=== PATIENT | female | born 1990 | race Caucasian/White ===

== ENCOUNTER 2018-06-20 23:35 | Emergency (ER) | payer OTHER ==
[2018-06-20 23:48] VITALS: RESP 18; TEMP 97; O2SAT 98
[2018-06-21] MEDS ORDERED: KETOROLAC TROMETHAMINE 30 MG/ML SOL IM ONE (00:07)
[2018-06-21] MEDS ORDERED: KETOROLAC TROMETHAMINE 30 MG/ML SOL ONE (00:09)
[2018-06-21 00:36] LABS: APPEARANCE,URINE Clear; BILIRUBIN,URINE NEGATIVE (NEGATIVE); COLOR,URINE Yellow; GLUCOSE, URINE (UA) NEGATIVE (NEGATIVE); KETONES,URINE TRACE (NEGATIVE); LEUKOCYTE ESTERASE ,URINE NEGATIVE (NEGATIVE); NITRATE,URINE NEGATIVE (NEGATIVE); OCCULT BLOOD,URINE 3+ (NEG-TRACE); PH,URINE 5.5; UROBILINOGEN,URINE 0.2 (0.2-1.0 EU)
[2018-06-21 00:46] LABS: BACTERIA 1+ (< 1+); CRYSTALS NEGATIVE (0-3 AVE/HPF); WBC,URINE 0-2 (0-5AV/HPF)
[2018-06-21 00:54] VITALS: BP 131/84; PULSE 82
== END 2018-06-21 01:10 | disposition home or self-care (01) | DRG 392 ==
LOC: ED 23:35
DX: K59.01 Slow transit constipation (principal)
CPT/HCPCS: 74018; 74176; 81001; 96372; 99283; J1885

== ENCOUNTER 2018-06-29 21:23 | Emergency (ER) | payer OTHER ==
[2018-06-29 21:33] VITALS: RESP 20
[2018-06-29] MEDS ORDERED: SODIUM CHLORIDE 0.9% 1000ML 1,000 ML IV ONE (21:44)
[2018-06-29] MEDS ORDERED: KETOROLAC TROMETHAMINE 30 MG/ML SOL IV ONE (21:45)
[2018-06-29] MEDS ORDERED: ONDANSETRON HCL 4 MG/2 ML SOL IV ONE (21:46)
[2018-06-29] MEDS ORDERED: ONDANSETRON HCL 4 MG/2 ML SOL ONE (21:53)
[2018-06-29] MEDS ORDERED: KETOROLAC TROMETHAMINE 30 MG/ML SOL ONE (21:53)
[2018-06-29 21:56] LABS: HEMATOCRIT 40 % (35-47); HEMOGLOBIN 13.5 gm/dl (12.0-15.5); MEAN CORPUSCULAR HEMOGLOBIN 30.9 pg (27.0-32.0); MEAN CORPUSCULAR HGB CONC 33.9 gm/dl (32.0-36.0); MEAN CORPUSCULAR VOLUME 91 fL (81-99)
[2018-06-29 22:04] VITALS: BP 134/84; PULSE 66; TEMP 98.2; O2SAT 99
[2018-06-29 22:08] LABS: ALBUMIN 3.6 gm/dl (3.4-5.0); BILIRUBIN,TOTAL 0.3 mg/dl (0.2-1.0); CALCIUM 8.6 mg/dl (8.5-10.1); CARBON DIOXIDE 26.7 mEq/L (21-32); CREATININE 0.68 mg/dl (0.60-1.00); POTASSIUM 4.5 mMol/L (3.5-5.1); TOTAL PROTEIN 7.8 gm/dl (6.4-8.2)
[2018-06-29 22:22] LABS: BAND NEUTROPHILS % (MANUAL) 2 %; BASOPHILS % (MANUAL) 0 % (0-3); EOSINOPHILS % (MANUAL) 0 % (0-9); LYMPHOCYTES % (MANUAL) 40 % (10-50); MONOCYTES % (MANUAL) 9 % (0-12); NEUTROPHILS % (MANUAL) 49 % (37-80); NORMAL RBCS PRESENT
== END 2018-06-29 22:51 | disposition home or self-care (01) | DRG 446 ==
LOC: ED 21:23
DX: K80.20 Calculus of gallbladder without cholecystitis without obstruction (principal)
CPT/HCPCS: 80053; 82150; 85007; 85027; 96365; 96374; 96375; 99282; 99284; J1885; J2405

== ENCOUNTER 2018-07-08 02:00 | Emergency (ER) | payer OTHER ==
[2018-07-08 02:12] VITALS: RESP 16; TEMP 97.6; O2SAT 98
[2018-07-08] MEDS ORDERED: SODIUM CHLORIDE 0.9% 500 ML 500 ML IV ONE (02:14)
[2018-07-08] MEDS ORDERED: SODIUM CHLORIDE 0.9% FLUSH 10 ML SOL IV PRN (02:14)
[2018-07-08] MEDS ORDERED: KETOROLAC TROMETHAMINE 30 MG/ML SOL IV ONE (02:14)
[2018-07-08] MEDS ORDERED: MORPHINE SULFATE 10 MG/ML SOL IV ONE (02:14)
[2018-07-08] MEDS ORDERED: ONDANSETRON HCL 4 MG/2 ML SOL IV ONE (02:15)
[2018-07-08] MEDS ORDERED: ONDANSETRON HCL 4 MG/2 ML SOL ONE (02:19)
[2018-07-08] MEDS ORDERED: MORPHINE SULFATE 10 MG/ML SOL ONE (02:19)
[2018-07-08 02:29] LABS: BASOPHILS % (AUTO) 1 % (0-3); EOSINOPHILS % (AUTO) 1 % (0-9); HEMATOCRIT 39 % (35-47); HEMOGLOBIN 13.4 gm/dl (12.0-15.5); LYMPHOCYTES % (AUTO) 27.5 % (10-50); MEAN CORPUSCULAR HEMOGLOBIN 30.6 pg (27.0-32.0); MEAN CORPUSCULAR HGB CONC 33.9 gm/dl (32.0-36.0); MEAN CORPUSCULAR VOLUME 90 fL (81-99); MONOCYTES % (AUTO) 9.5 % (0-12); NEUTROPHILS % (AUTO) 61.2 % (37-80)
[2018-07-08 02:43] LABS: ALBUMIN 3.4 gm/dl (3.4-5.0); BILIRUBIN,TOTAL 0.3 mg/dl (0.2-1.0); CALCIUM 8.5 mg/dl (8.5-10.1); CARBON DIOXIDE 28.9 mEq/L (21-32); CREATININE 0.86 mg/dl (0.60-1.00); POTASSIUM 3.5 mMol/L (3.5-5.1); TOTAL PROTEIN 7.3 gm/dl (6.4-8.2)
[2018-07-08 02:50] LABS: APPEARANCE,URINE Slightly Cloudy; BILIRUBIN,URINE NEGATIVE (NEGATIVE); COLOR,URINE Yellow; GLUCOSE, URINE (UA) NEGATIVE (NEGATIVE); KETONES,URINE NEGATIVE (NEGATIVE); LEUKOCYTE ESTERASE ,URINE NEGATIVE (NEGATIVE); NITRATE,URINE NEGATIVE (NEGATIVE); OCCULT BLOOD,URINE TRACE INTACT (NEG-TRACE); PH,URINE 5.5; UROBILINOGEN,URINE 0.2 (0.2-1.0 EU)
[2018-07-08 02:57] LABS: BACTERIA NEGATIVE (< 1+); CRYSTALS NEGATIVE (0-3 AVE/HPF); RBC,URINE 0-3 (0-3AV/HPF); WBC,URINE 0-2 (0-5AV/HPF)
[2018-07-08] MEDS ORDERED: KETOROLAC TROMETHAMINE 30 MG/ML SOL ONE (03:01)
[2018-07-08 03:42] VITALS: BP 128/79; PULSE 78
== END 2018-07-08 03:31 | disposition home or self-care (01) | DRG 446 ==
LOC: ED 02:00
DX: K82.9 Disease of gallbladder, unspecified (principal)
CPT/HCPCS: 80053; 81001; 84703; 85025; 96365; 96374; 96375; 99282; 99284; J1885; J2270; J2405